=== PATIENT | female | born 1995 | race Caucasian/White ===

== ENCOUNTER 2018-04-27 22:48 | Emergency (ER) | payer OTHER ==
[~2018-04-27] VITALS: Ht 160 cm; Wt 102.3 kg
[2018-04-27 22:49] VITALS: Ht 160 cm; Wt 102.3 kg
--- NOTE | 2018-04-28 00:35 | ERD ---
ER Documentation Chief Complaint Chief Complaint BIB [facility],med clearance,c/o pelvic and lower back cramping,6 wks HPI This is a 22-year-old male brought in by PD for medical clearance patient claims of pelvic cramping. History of 6-week . No blood in urine. No other current complaints. Pain is mild in nature with no exacerbating alleviating factors. ROS All systems reviewed and are negative except as per history of present illness. Allergies Allergies: Coded Allergies: Penicillins (Verified Allergy, Unknown, 04/27/18) PMhx/Soc Medical and Surgical Hx: pt denies Medical Hx, pt denies Surgical Hx Hx Alcohol Use: No Hx Substance Use: No Hx Tobacco Use: No Smoking Status: Never smoker Physical Exam Vitals Vital Signs Date Temp Pulse Resp B/P (MAP) Pulse Ox O2 O2 Flow FiO2 Time Delivery Rate 04/27/18 97.8 81 19 126/82 100 Room Air 23:11 (97) 04/27/18 97.8 78 18 127/85 100 22:49 (99) Physical Exam Const: No acute distress Head: Atraumatic Eyes: Normal Conjunctiva ENT: Normal External Ears, Nose and Mouth. Neck: Full range of motion. No meningismus. Resp: Clear to auscultation bilaterally Cardio: Regular rate and rhythm, no murmurs Abd: Soft, non tender, non distended. Normal bowel sounds Skin: No petechiae or rashes Back: No midline or flank tenderness Ext: No cyanosis, or edema Neur: Awake and alert Psych: Normal Mood and Affect Results 24 hrs Laboratory Tests Test 04/27/18 23:06 Urine Color STRAW Urine Clarity CLEAR Urine pH 5.[address] 1.009 Urine Ketones NEGATIVE mg/dL Urine Nitrite NEGATIVE mg/dL Urine Bilirubin NEGATIVE mg/dL Urine Urobilinogen NEGATIVE mg/dL Urine Leukocyte Esterase 1+ Abhinav/ul Urine Microscopic RBC 2 /HPF Urine Microscopic WBC 3 /HPF Urine Squamous Epithelial Cells FEW /HPF Urine Bacteria FEW /HPF Urine Hemoglobin 1+ mg/dL Urine Glucose NEGATIVE mg/dL Urine Total Protein NEGATIVE mg/dl Procedures/MDM Medical decision makin female pelvic cramping. No evidence of ectopic . Live IUP noted. Stable for booking. Departure Diagnosis: Primary Impression: Medical clearance for incarceration Additional Impression: Pelvic cramping Condition: Stable Patient Instructions: [facility] Clearance, , Established, Normal Symptoms MARK VUONG Apr 28, 2018 00:35
[2018-04-28 00:39] VITALS: BP 119/68; PULSE 79; RESP 20
== END 2018-04-28 00:40 | disposition home or self-care (01) ==
LOC: E/R 22:48
DX: O26.891 Other specified pregnancy related conditions, first trimester (principal); R10.2 Pelvic and perineal pain; Z3A.01 Less than 8 weeks gestation of pregnancy
CPT/HCPCS: 76801; 81001; 87086